=== PATIENT | female | born 1980 | race Caucasian/White ===

== ENCOUNTER 2024-09-15 09:57 | Outpatient (CLI) | payer OTHER, SELFPAY | END 2024-09-15 09:58 | disposition home or self-care (01) | LOC: MOBLMAM 10:00 | PROVIDERS: PCP Nurse Practitioner Primary Care; Visit Provider Nurse Practitioner Primary Care | DX: Z12.31 Encounter for screening mammogram for malignant neoplasm of breast (principal) | CPT/HCPCS: 77063; 77067 ==